=== PATIENT | male | born 2000 | race Hispanic/Latino ===

== ENCOUNTER 2023-03-24 18:47 | Emergency (ER) | payer OTHER ==
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
[2023-03-24 20:38] VITALS: BP 121/68; TEMP 98.4; O2SAT 100
[2023-03-24] MEDS ORDERED: IBUPROFEN 200 MG TAB PO ONE (20:40)
== END 2023-03-24 20:30 | disposition home or self-care (01) ==
LOC: ER 18:47
DX: S29.9XXA Unspecified injury of thorax, initial encounter (principal); S50.01XA Contusion of right elbow, initial encounter
CPT/HCPCS: 71045; 99283

== ENCOUNTER 2023-09-22 20:34 | Emergency (ER) | payer OTHER, SELFPAY ==
[2023-09-22] MEDS ORDERED: METOCLOPRAMIDE 10 MG/2mL INJ ONE (21:12)
[2023-09-22] MEDS ORDERED: NA CHLORIDE 0.9% 50 ML ONE (21:12)
[2023-09-22] MEDS ORDERED: KETOROLAC 30 MG/ML INJ ONE (21:12)
[2023-09-22] MEDS ORDERED: DIPHENHYDRAMINE 50 MG/ML VIAL ONE (21:12)
[2023-09-22] MEDS ORDERED: NA CHLORIDE 0.9% 1,000 ML ONE (21:13)
--- NOTE | 2023-09-22 22:16 | RAD REPORT ---
EXAM DESCRIPTION: CT - Head Brain Wo Cont - 09/22/2023 9:16 pm CLINICAL HISTORY: HEADACHE COMPARISON: No comparisons TECHNIQUE: Noncontrast head CT images ad were obtained without IV contrast. Multiplanar reformats we re generated and reviewed. All CT scans are performed using dose optimization technique as appropriate and may include automated exposure control or mA/KV adjustment according to patient size. FINDINGS: No intracranial hemorrhage, mass, or edema. Midline structures are unremarkable. Normal ventricular caliber for age. Nolan-white matter differentiation is preserved, without evidence of acute infarct. No abnormal extra- axial fluid collections. Mastoid air cells and visualized portions of the paranasal sinuses are clear. No acute bony findings. IMPRESSION: No evidence of an acute intracranial process.
--- NOTE | 2023-09-22 22:40 | EDPHYS ---
Physician Documentation [facility] Name: Gabe Rivera Jr Age: 22 yrs Sex: Male : 2000 Arrival Date: 09/22/2023 Time: 20:34 Bed 3 Private MD: ED Physician Vincent Lanza HPI: 09/22 00:30 This 22 yrs old Male presents to ER via EMS with complaints of headache. rt 00:30 Patient presents to the ED with chronic headaches. Patient has had a headache for a rt while. 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 The grandmother states that the patient was taken off of his Trileptal, other psychiatric medications recently. He has had worsening outbursts since then. Denies any HI, SI at this time. Denies other acute complaints, symptoms are moderate in severity, no other aggravating or alleviating factors.. Historical: - Allergies: 09/21 21:08 No Known Allergies; vc1 - PMHx: 21:08 Anxiety; SHAKEN BABY SYNDROME; TBI; Depressive disorder; vc1 - PSHx: 21:08 None; vc1 - Immunization history:: Adult Immunizations up to date, Client reports having NOT received the Covid vaccine. Flu vaccine is not up to date. - Infectious Disease History:: Denies. - Social history:: Smoking status: Patient denies any tobacco usage or history of. Patient/guardian denies using alcohol, street drugs. ROS: 09/22 00:30 Constitutional: Negative for fever, chills, and weight loss, Cardiovascular: Negative rt for chest pain, palpitations, and edema, Respiratory: Negative for shortness of breath, cough, wheezing, and pleuritic chest pain, Abdomen/GI: Negative for abdominal pain, nausea, vomiting, diarrhea, and constipation, MS/Extremity: Negative for injury and deformity, Skin: Negative for injury, rash, and discoloration, Neuro: Positive for headache, Negative for loss of consciousness, Exam: 00:30 Constitutional: This is a well developed, well nourished patient who is awake, alert, rt and in no acute distress. Head/Face: Normocephalic, atraumatic. Neck: Trachea midline, no thyromegaly or masses palpated, and no cervical lymphadenopathy. Supple, full range of motion without nuchal rigidity, or vertebral point tenderness. No Meningismus. Chest/axilla: Normal chest wall appearance and motion. Nontender with no deformity. No lesions are appreciated. Cardiovascular: Regular rate and rhythm with a normal S1 and S2. No gallops, murmurs, or rubs. Normal PMI, no JVD. No pulse deficits. Respiratory: Lungs have equal breath sounds bilaterally, clear to auscultation and percussion. No rales, rhonchi or wheezes noted. No increased work of breathing, no retractions or nasal flaring. Abdomen/GI: Soft, non-tender, with normal bowel sounds. No distension or tympany. No guarding or rebound. No evidence of tenderness throughout. Skin: Warm, dry with normal turgor. Normal color with no rashes, no lesions, and no evidence of cellulitis. MS/ Extremity: Pulses equal, no cyanosis. Neurovascular intact. Full, normal range of motion. Neuro: Awake and alert, GCS 15, oriented to person, place, time, and situation. Cranial nerves II-XII grossly intact. Motor strength 5/5 in all extremities. Sensory grossly intact. Cerebellar exam normal. Normal gait. Vital Signs: 09/21 21:05 BP 100 / 64; Pulse 63; Resp 15; Temp 97.9; Pulse Ox 99% ; Weight 83.01 kg; Height 8 ft. vc1 3 in. ; 22:44 BP 109 / 75; Pulse 65; Resp 15; Pulse Ox 100% ; vc1 21:05 Body Mass Index 13.13 (83.01 kg, 251.46 cm) vc1 MDM: 20:47 Patient medically screened. rt 09/22 00:30 Differential Diagnosis Chronic headaches, intracranial hemorrhage, tumor. Data rt reviewed: vital signs, nurses notes, radiologic studies. I considered the following discharge prescriptions or medication management in the emergency department Medications were administered in the Emergency Department. See MAR. Independent interpretation of the following test(s) in the Emergency Department CT Scan: My interpretation is No intracranial hemorrhage seen on interpretation of CT scan images. Care significantly affected by the following chronic conditions: Chronic headaches. Counseling: I had a detailed discussion with the patient and/or guardian regarding the historical points, exam findings, and any diagnostic results supporting the discharge/admit diagnosis, radiology results, the need for outpatient follow up, to return to the emergency department if symptoms worsen or persist or if there are any questions or concerns that arise at home. Response to treatment: the patient's symptoms have markedly improved after treatment. ED course: Headache improving with headache cocktail. Patient is having occasional outbursts, was recently taken off of mood stabilizers. Will prescribe short course of Seroquel until the patient is able to get in with his primary care for further management.. 09/21 21:01 Order name: CT Head Brain wo Cont; Complete Time: 22:19 rt Administered Medications: 09/21 21:35 Drug: metoCLOPramide IVP 10 mg IVP once; over 1 to 2 minutes Route: IVP; Site: left vc1 antecubital; 22:45 Follow up: Response: No adverse reaction; Marked relief of symptoms vc1 21:35 Drug: diphenhydrAMINE IVP 25 mg IVP once Route: IVP; Site: left antecubital; vc1 22:45 Follow up: Response: No adverse reaction; Marked relief of symptoms vc1 21:35 Drug: NS 0.9% IV 1000 ml IV at 1 bolus Per protocol; 1000 mL bolus Route: IV; Rate: 1 vc1 bolus; Site: left antecubital; 22:45 Follow up: IV Status: Completed infusion vc1 22:45 Follow up: IV Status: Completed infusion; IV Intake: 1000ml vc1 21:35 Drug: Ketorolac IVP 15 mg IVP once Route: IVP; Site: left antecubital; vc1 22:45 Follow up: Response: No adverse reaction; Marked relief of symptoms vc1 Disposition Summary: 09/22/23 22:40 Discharge Ordered Notes: Location: Home rt Problem: an ongoing problem rt Symptoms: have improved rt Condition: Stable rt Diagnosis - Headache rt Followup: rt - With: Rafael Peña MD - When: 2 - 3 days - Reason: Discharge Instructions: - Discharge Summary Sheet rt - General Headache Without Cause rt Forms: - Medication Reconciliation Form rt - Antibiotic Education rt - Prescription Opioid Use rt - Patient Portal Instructions rt - Leadership Thank You Letter rt Prescriptions: - Seroquel 200 mg Oral tablet - take 1 tablet ORAL route every day at bedtime; 7 tablet; Refills: 0, Product rt Selection Permitted Signatures: Dispatcher [employer] EDMS Catalina Viera RN RN vc1 Vincent Lanza, MD rt
--- NOTE | 2023-09-22 22:40 | ER ---
Nurse's Notes [facility] Name: Gabe Rivera Jr Age: 22 yrs Sex: Male : 2000 Arrival Date: 09/22/2023 Time: 20:34 Bed 3 Private MD: Diagnosis: Headache Presentation: 09/21 21:05 Chief complaint: EMS states: has a history of TBI and has a severe headache, he usually vc1 has migraines every day but today its so bad he couldn't take it anymore. Coronavirus screen: Client denies travel out of the [place] in the last 14 days. At this time, the client does not indicate any symptoms associated with coronavirus-19. Ebola Screen: Patient negative for fever greater than or equal to 101.5 degrees Fahrenheit, and additional compatible Ebola Virus Disease symptoms Patient denies exposure to infectious person. Patient denies travel to an Ebola-affected area in the 21 days before illness onset. No symptoms or risks identified at this time. Initial Sepsis Screen: Does the patient meet any 2 criteria? No. Patient's initial sepsis screen is negative. Does the patient have a suspected source of infection? No. Patient's initial sepsis screen is negative. Risk Assessment: Do you want to hurt yourself or someone else? Patient reports no desire to harm self or others. Onset of symptoms is unknown. 21:05 Method Of Arrival: EMS: [facility] vc1 21:05 Acuity: FABIANO 4 vc1 Triage Assessment: 21:00 General: Appears in no apparent distress. uncomfortable, slender, well groomed, vc1 Behavior is cooperative. Pain: Complains of pain in entire head Pain currently is 10 out of 10 on a pain scale. Quality of pain is described as pressure, sharp, Pain began every day, today is worse. EENT: No deficits noted. No signs and/or symptoms were reported regarding the EENT system. Neuro: Level of Consciousness is awake, alert, obeys commands, Oriented to person, place, situation. Neuro: Reports headache in entire that is the "worst ever". Cardiovascular: Heart tones S1 S2 Capillary refill < 3 seconds Patient's skin is warm and dry. Respiratory: Airway is patent Respiratory effort is even, unlabored, Respiratory pattern is regular, symmetrical, Breath sounds are clear bilaterally. GI: Abdomen is flat, non-distended, Bowel sounds present X 4 quads. Abd is soft and non tender X 4 quads. : No deficits noted. No signs and/or symptoms were reported regarding the genitourinary system. Derm: Skin is intact, is healthy with good turgor, Skin is dry, Skin is normal, Skin temperature is warm. Musculoskeletal: No deficits noted. No signs and/or symptoms reported regarding the musculoskeletal system. Historical: - Allergies: 21:08 No Known Allergies; vc1 - PMHx: 21:08 Anxiety; SHAKEN BABY SYNDROME; TBI; Depressive disorder; vc1 - PSHx: 21:08 None; vc1 - Immunization history:: Adult Immunizations up to date, Client reports having NOT received the Covid vaccine. Flu vaccine is not up to date. - Infectious Disease History:: Denies. - Social history:: Smoking status: Patient denies any tobacco usage or history of. Patient/guardian denies using alcohol, street drugs. Screenin:40 [facility] ED Fall Risk Assessment (Adult) History of falling in the last 3 months, vc1 including since admission No falls in past 3 months (0 pts) Confusion or Disorientation No (0 pts) Intoxicated or Sedated No (0 pts) Impaired Gait No (0 pts) Mobility Assist Device Used No (0 pt) Altered Elimination No (0 pt) Score/Fall Risk Level 0 - 2 = Low Risk Oriented to surroundings, Maintained a safe environment, Educated pt \\T\\ family on fall prevention, incl call for assistance when getting out of bed. Abuse screen: Denies threats or abuse. Nutritional screening: No deficits noted. Tuberculosis screening: No symptoms or risk factors identified. Assessment: 21:00 Reassessment: See triage assessment. vc1 22:48 Reassessment: Patient appears in no apparent distress at this time. Patient and/or vc1 family updated on plan of care and expected duration. Pain level reassessed. Patient is alert, oriented x 3, equal unlabored respirations, skin warm/dry/pink. Patient states symptoms have improved. Vital Signs: 21:05 BP 100 / 64; Pulse 63; Resp 15; Temp 97.9; Pulse Ox 99% ; Weight 83.01 kg; Height 8 ft. vc1 3 in. ; 22:44 BP 109 / 75; Pulse 65; Resp 15; Pulse Ox 100% ; vc1 21:05 Body Mass Index 13.13 (83.01 kg, 251.46 cm) vc1 ED Course: 20:38 Patient arrived in ED. vc1 20:39 Vincent Lanza MD is Attending Physician. rt 20:40 Patient has correct armband on for positive identification. Bed in low position. Call vc1 light in reach. Side rails up X2. Adult w/ patient. Pulse ox on. NIBP on. 21:08 Triage completed. vc1 21:09 Arm band placed on right wrist. vc1 21:18 CT Head Brain wo Cont In Process Unspecified. EDMS 21:30 Inserted saline lock: 20 gauge in left antecubital area, using aseptic technique. vc1 22:40 Rafael Peña MD is Referral Physician. rt 23:17 Catalina Viera, KATIUSKA is Primary Nurse. vc1 23:17 No provider procedures requiring assistance completed. IV discontinued, intact, vc1 bleeding controlled, No redness/swelling at site. Pressure dressing applied. 23:18 Provided Education on: f/u with neurology. vc1 Administered Medications: 21:35 Drug: metoCLOPramide IVP 10 mg IVP once; over 1 to 2 minutes Route: IVP; Site: left vc1 antecubital; 22:45 Follow up: Response: No adverse reaction; Marked relief of symptoms vc1 21:35 Drug: diphenhydrAMINE IVP 25 mg IVP once Route: IVP; Site: left antecubital; vc1 22:45 Follow up: Response: No adverse reaction; Marked relief of symptoms vc1 21:35 Drug: NS 0.9% IV 1000 ml IV at 1 bolus Per protocol; 1000 mL bolus Route: IV; Rate: 1 vc1 bolus; Site: left antecubital; 22:45 Follow up: IV Status: Completed infusion vc1 22:45 Follow up: IV Status: Completed infusion; IV Intake: 1000ml vc1 21:35 Drug: Ketorolac IVP 15 mg IVP once Route: IVP; Site: left antecubital; vc1 22:45 Follow up: Response: No adverse reaction; Marked relief of symptoms vc1 Medication: 22:44 VIS not applicable for this client. vc1 Intake: 22:45 IV: 1000ml; Total: 1000ml. vc1 Outcome: 22:40 Discharge ordered by . rt 23:18 Discharged to home ambulatory, vc1 23:18 Condition: good 23:18 Discharge instructions given to patient, Instructed on discharge instructions, follow up and referral plans. medication usage, Demonstrated understanding of instructions, follow-up care, medications, Prescriptions given X 1, 23:18 Patient left the ED. vc1 Signatures: Dispatcher [employer] Catalina Espinoza RN RN vc1 Vincent Lanza MD MD rt
[2023-09-23 00:05] VITALS: BP 109/75; TEMP 97.9; O2SAT 100
== END 2023-09-22 23:18 | disposition home or self-care (01) ==
LOC: ER 20:34
DX: R51.9 Headache, unspecified (principal); Z87.820 Personal history of traumatic brain injury
CPT/HCPCS: 96361; 70450; 96375; 96374; 99284; J2765; J1200; J7030

== ENCOUNTER 2024-05-22 17:12 | Emergency (ER) | payer OTHER ==
[2024-05-22] MEDS ORDERED: LORazepam 2 MG/ML VIAL ONE (17:53)
[2024-05-22] MEDS ORDERED: NA CHLORIDE 0.9% 1,000 ML ONE (17:56)
[2024-05-22] MEDS ORDERED: ONDANSETRON 4 MG/2 ML VIAL ONE (17:56)
[2024-05-22 18:04] LABS: Absolute Basophils 0.1 K/uL (0-0.5); Absolute Eosinophils 0.2 K/uL (0-0.5); Absolute Lymphocytes (CBC) 1.5 K/uL (0.7-4.9); Absolute Monocytes 0.9 K/uL (0.1-1.3); Absolute Neutrophil 8.6 K/uL (1.8-8.0); Basophils % 0.5 % (0-1.3); Eosinophils % 1.4 % (0-4.4); Hematocrit 40.1 % (39.6-49.0); Hemoglobin 13.8 g/dL (13.6-17.9); Lymphocytes % 13.3 % (15.3-44.8); MCH 31.3 pg (27.0-35.0); MCHC 34.4 g/dL (32.0-36.0); MCV 91.1 fL (80-100); MPV 7.6 fL (7.6-11.3); Monocytes % 7.9 % (3.3-12.3); Neutrophils % 76.9 % (41.7-73.7); Nucleated Red Blood Cells % 0.1 % (0-0); Platelets 335 thou/uL (152-406); Red Cell Distribution Width 12.5 % (12.1-15.2)
[2024-05-22 18:19] LABS: Albumin 3.4 g/dL (3.4-5.0); Anion Gap 7.6 mEq/L (5.0-15.0); Bilirubin Total 0.3 mg/dL (0.2-1.0); Globulin 3.3 g/dL (2.3-3.5); Magnesium 1.9 mg/dL (1.6-2.4); Potassium 3.6 mEq/L (3.5-5.1); Protein, Total 6.7 g/dL (6.4-8.2)
--- NOTE | 2024-05-22 18:54 | RAD REPORT ---
EXAMINATION: ONE VIEW CHEST XR CLINICAL INDICATION: Male, 23 years old.,PALPITATIONS TECHNIQUE: Frontal chest projection is submitted. Examination is limited by patient positioning and t echnique. COMPARISON: 03/24/2023 FINDINGS: The lungs are well inflated and clear. No pneumothorax or sizable effusion. The heart is normal in s ize. Mediastinal contours are unremarkable. IMPRESSION: No acute intrathoracic abnormalities.
--- NOTE | 2024-05-22 19:48 | EDPHYS ---
Physician Documentation [facility] Name: Gabe Rivera Jr Age: 23 yrs Sex: Male : 2000 Arrival Date: 05/22/2024 Time: 17:12 Bed 20 Private MD: ED Physician Noam Loo HPI: 05/22 18:08 This 23 yrs old Male presents to ER via EMS with complaints of Possible dr5 Overdose, Anxiety. 18:08 Auvelity (45mg/105mg). dr5 22:11 Patient states that he possibly overdosed on his medication. Patient is supposed to dr5 take 1 Auvelity in the morning and 1 in the evening. Patient states that he took 2 this evening and started feeling anxious about. Patient denies chest pain, shortness of breath, nausea, vomiting, diarrhea. Patient does have a history of TBI. Mother at bedside with patient.. Historical: - Allergies: 17:39 Milk/dairy products; kj2 - Immunization history:: Adult Immunizations unknown. - Infectious Disease History:: Denies. - Social history:: Smoking status: unknown. ROS: 22:11 Constitutional: as per hpi dr5 Exam: 22:11 Constitutional: This is a well developed, well nourished patient who is awake, alert, dr5 and in no acute distress. Head/Face: Normocephalic, atraumatic. Eyes: Pupils equal round and reactive to light, extra-ocular motions intact. Lids and lashes normal. Conjunctiva and sclera are non-icteric and not injected. Cornea within normal limits. Periorbital areas with no swelling, redness, or edema. Neck: Trachea midline, no thyromegaly or masses palpated, and no cervical lymphadenopathy. Supple, full range of motion without nuchal rigidity, or vertebral point tenderness. No Meningismus. Chest/axilla: Normal chest wall appearance and motion. Nontender with no deformity. No lesions are appreciated. Cardiovascular: Regular rate and rhythm with a normal S1 and S2. Normal PMI, no JVD. No pulse deficits. Respiratory: Lungs have equal breath sounds bilaterally, clear to auscultation. No rales, rhonchi or wheezes noted. No increased work of breathing, no retractions or nasal flaring. Back: No spinal tenderness. No costovertebral tenderness. Full range of motion. Skin: Warm, dry with normal turgor. Normal color with no rashes, no lesions, and no evidence of cellulitis. MS/ Extremity: Pulses equal, no cyanosis. Neurovascular intact. Full, normal range of motion. Neuro: Awake and alert, GCS 15, oriented to person, place, time, and situation. Cranial nerves II-XII grossly intact. Motor strength 5/5 in all extremities. Sensory grossly intact. Cerebellar exam normal. Normal gait. Vital Signs: 17:37 BP 136 / 79; Pulse 127; Resp 20; Temp 98; Pulse Ox 99% on R/A; Weight 95.25 kg; Height kj2 5 ft. 8 in. ; 18:51 BP 136 / 76; Pulse 120; Resp 20; Pulse Ox 100% on R/A; kj2 20:13 BP 127 / 75; Pulse 98; Resp 18 S; Pulse Ox 99% on R/A; ha1 17:37 Body Mass Index 31.93 (95.25 kg, 172.72 cm) kj2 MDM: 17:27 Medical Screening Exam initiated dr5 22:11 Differential diagnosis: polypharmacy, over medication, hypoglycemia. Data reviewed: dr5 vital signs, nurses notes. I considered the following discharge prescriptions or medication management in the emergency department Medications were administered in the Emergency Department. See MAR. Care significantly affected by the following chronic conditions: Traumatic Brain Injury. Care significantly affected by the following Social Determinants of Health: Poor access to healthcare and/or lack of insurance, Poor access to transportation, Problems related to employment. Counseling: I had a detailed discussion with the patient and/or guardian regarding the historical points, exam findings, and any diagnostic results supporting the discharge/admit diagnosis, the presence of at least one elevated blood pressure reading (>120/80) during this emergency department visit, lab results, the need for outpatient follow up, for definitive care, a family practitioner, to return to the emergency department if symptoms worsen or persist or if there are any questions or concerns that arise at home. ED course: Patient reports he is fully much better after Ativan and follow-up fluids. Recommended patient resume taking medication as prescribed tomorrow morning. All blood work was unremarkable and safe to discharge home. Strict ER precautions given. Recommend patient follow-up with primary care doctor and/or psychiatrist as needed. All questions answered.. 05/22 17:40 Order name: CBC with Diff; Complete Time: 18:08 dr5 05/22 17:40 Order name: Magnesium; Complete Time: 18:30 dr5 05/22 17:40 Order name: Troponin HS; Complete Time: 18:30 dr5 05/22 17:40 Order name: CMP; Complete Time: 18:30 dr5 05/22 17:40 Order name: XRAY Chest (1 view); Complete Time: 18:59 dr5 05/22 17:40 Order name: Cardiac monitoring; Complete Time: 17:40 dr5 05/22 17:40 Order name: EKG - Nurse/Tech; Complete Time: 17:40 dr5 05/22 17:40 Order name: IV Saline Lock; Complete Time: 18:03 dr5 05/22 17:40 Order name: Labs collected and sent; Complete Time: 18:03 dr5 05/22 17:40 Order name: O2 Per Protocol; Complete Time: 17:40 dr5 05/22 17:40 Order name: O2 Sat Monitoring; Complete Time: 17:40 dr5 EC:33 Rate is 124 beats/min. Rhythm is regular. QRS [place] is Normal. CT interval is normal at dr5 154 msec. QRS interval is normal at 86 msec. QT interval is normal at 328 msec. Administered Medications: 18:02 Drug: Ativan IVP 0.5 mg IVP once Route: IVP; Site: right antecubital; kj2 18:53 Follow up: Response: No adverse reaction kj2 18:02 Drug: NS 0.9% IV 1000 ml IV at 1000 ml once; to be given as a bolus over 60 minutes kj2 Route: IV; Rate: 1000 ml; Site: right antecubital; 18:53 Follow up: IV Status: Completed infusion; IV Intake: 1000ml kj2 18:02 Drug: Ondansetron IVP 4 mg IVP once; over 2 minutes Route: IVP; Site: right antecubital;kj2 18:53 Follow up: Response: No adverse reaction kj2 Disposition: 05/23 10:07 Co-signature as Attending Physician, Noam Loo MD I reviewed the patient's care rn provided by the Advanced Practice Provider and agree with the diagnosis and treatment plan. Disposition Summary: 05/22/24 19:47 Discharge Ordered Notes: Location: Home dr5 Condition: Stable dr5 Diagnosis - Anxiety disorder, unspecified dr5 - Other psychoactive substance use, unspecified dr5 Followup: dr5 - With: Emergency Department - When: As needed - Reason: Worsening of condition Followup: dr5 - With: Private Physician - When: 1 - 2 days - Reason: Recheck today's complaints, Continuance of care, Re-evaluation by your physician Discharge Instructions: - Discharge Summary Sheet dr5 - Supporting Someone With Substance Use Disorder dr5 - Managing Anxiety, Adult dr5 Forms: - Medication Reconciliation Form dr5 - Patient Portal Instructions dr5 - Leadership Thank You Letter dr5 Signatures: Dispatcher [employer] EDMS Noam Loo MD MD rn Jordan, Krystal, RN RN kj2 Robin Ramirez, AIRPLANE CABIN ATTENDANT-C AIRPLANE CABIN ATTENDANT-Cdr5 Corrections: (The following items were deleted from the chart) 05/22 17:40 17:40 Chest Single View+RAD.RAD.BRZ ordered. [facility]
--- NOTE | 2024-05-22 19:48 | ER ---
Nurse's Notes [facility] Name: Gabe Rivera Jr Age: 23 yrs Sex: Male : 2000 Arrival Date: 05/22/2024 Time: 17:12 Bed 20 Private MD: Diagnosis: Anxiety disorder, unspecified;Other psychoactive substance use, unspecified Presentation: 05/22 17:37 Chief complaint: EMS states: overdose on his SSRI medicine, name of med unknown. kj2 Coronavirus screen: Client denies travel out of the [place] in the last 14 days. Ebola Screen: No symptoms or risks identified at this time. Initial Sepsis Screen: Does the patient meet any 2 criteria? No. Patient's initial sepsis screen is negative. Does the patient have a suspected source of infection? No. Patient's initial sepsis screen is negative. Risk Assessment: Do you want to hurt yourself or someone else? Patient reports no desire to harm self or others. Onset of symptoms. 17:37 Method Of Arrival: EMS: [facility] kj2 17:37 Acuity: FABIANO 3 kj2 Triage Assessment: 17:40 General: Appears in no apparent distress. Behavior is calm, cooperative. Pain: Denies kj2 pain. Neuro: Level of Consciousness is awake, alert, obeys commands, Oriented to person, place, time, situation. Cardiovascular: Patient's skin is warm and dry. Respiratory: Airway is patent Respiratory effort is even, unlabored. GI: No signs and/or symptoms were reported involving the gastrointestinal system. : No signs and/or symptoms were reported regarding the genitourinary system. Historical: - Allergies: 17:39 Milk/dairy products; kj2 - Immunization history:: Adult Immunizations unknown. - Infectious Disease History:: Denies. - Social history:: Smoking status: unknown. Screenin:44 [facility] ED Fall Risk Assessment (Adult) History of falling in the last 3 months, kj2 including since admission No falls in past 3 months (0 pts) Confusion or Disorientation No (0 pts) Intoxicated or Sedated No (0 pts) Impaired Gait No (0 pts) Mobility Assist Device Used No (0 pt) Altered Elimination No (0 pt) Score/Fall Risk Level 0 - 2 = Low Risk Maintained a safe environment, Hourly rounding (assess needs \\T\\ fall precautionary measures) done. Abuse screen: Denies threats or abuse. Denies injuries from another. Nutritional screening: No deficits noted. Tuberculosis screening: No symptoms or risk factors identified. Assessment: 17:43 General: call light. kj2 18:51 Reassessment: Patient appears in no apparent distress at this time. Patient and/or kj2 family updated on plan of care and expected duration. Pain level reassessed. Patient is alert, oriented x 3, equal unlabored respirations, skin warm/dry/pink. 20:13 Reassessment: Patient and/or family updated on plan of care and expected duration. Pain ha1 level reassessed. Patient is alert, oriented x 3, equal unlabored respirations, skin warm/dry/pink. Patient states feeling better. Patient states symptoms have improved. Overdose: 17:44 Spray Suicide Severity Screening: "In the past month, have you wished you were kj2 or wished you could go to sleep and not wake up?" Patient responds "no." "In the past month, have you actually had any thoughts of killing yourself?" Patient responds "no." "In your lifetime, have you ever done anything, started to do anything, or prepared to do anything to end your life?" Patient responds "no.". 20:15 Spray Suicide Severity Screening: "In the past month, have you actually had any ha1 thoughts of killing yourself?" Patient responds "no.". Vital Signs: 17:37 BP 136 / 79; Pulse 127; Resp 20; Temp 98; Pulse Ox 99% on R/A; Weight 95.25 kg; Height kj2 5 ft. 8 in. ; 18:51 BP 136 / 76; Pulse 120; Resp 20; Pulse Ox 100% on R/A; kj2 20:13 BP 127 / 75; Pulse 98; Resp 18 S; Pulse Ox 99% on R/A; ha1 17:37 Body Mass Index 31.93 (95.25 kg, 172.72 cm) kj2 ED Course: 17:25 Patient arrived in ED. kj2 17:27 [facility]C [facility]. dr[facility] 17:27 Noam Loo MD is Attending Physician. dr5 17:36 Heather Aden RN is Primary Nurse. kj2 17:39 Triage completed. kj2 17:45 Patient has correct armband on for positive identification. Bed in low position. Call kj2 light in reach. Adult w/ patient. Provided Education on: call light. 18:00 XRAY Chest (1 view) In Process Unspecified. EDMS 18:52 Assisted to bathroom. kj2 19:28 Report given to KATIUSKA Murillo. kj2 20:14 IV discontinued, intact, bleeding controlled, No redness/swelling at site. Pressure ay dressing applied. 20:15 IV discontinued, intact, bleeding controlled, No redness/swelling at site. Pressure ha1 dressing applied. Administered Medications: 18:02 Drug: Ativan IVP 0.5 mg IVP once Route: IVP; Site: right antecubital; kj2 18:53 Follow up: Response: No adverse reaction kj2 18:02 Drug: NS 0.9% IV 1000 ml IV at 1000 ml once; to be given as a bolus over 60 minutes kj2 Route: IV; Rate: 1000 ml; Site: right antecubital; 18:53 Follow up: IV Status: Completed infusion; IV Intake: 1000ml kj2 18:02 Drug: Ondansetron IVP 4 mg IVP once; over 2 minutes Route: IVP; Site: right antecubital;kj2 18:53 Follow up: Response: No adverse reaction kj2 Medication: 17:44 VIS not applicable for this client. kj2 Intake: 18:53 IV: 1000ml; Total: 1000ml. kj2 Outcome: 19:47 Discharge ordered by . aminata 20:14 Discharged to home ambulatory, ay 20:14 Condition: stable 20:14 Discharge instructions given to patient, Instructed on discharge instructions, follow up and referral plans. Demonstrated understanding of instructions, follow-up care, medications, 20:16 Patient left the ED. ay Signatures: Dispatcher [employer] EDMS Smiley Pickett, RN RN ha1 Heather Aden RN RN kj2 Robin Ramirez, ACQUISITION EDITOR-C ACQUISITION EDITOR-Cdr5 Carlos Pritchett RN KATIUSKA ay
[2024-05-22 20:22] VITALS: TEMP 98
[2024-05-22 20:24] VITALS: BP 127/75; O2SAT 99
--- NOTE | 2024-05-25 12:21 | EKG ---
Test Date: 2024-05-22 Test Time: 17:33:26 Application Development Director: ELIZABETH MEASUREMENT RESULTS: Intervals: Rate: 124 IA: 154 QRSD: 86 QT: 328 QTc: 471 [place]: P: 58 IA: 154 QRS: 61 T: 49 INTERPRETIVE STATEMENTS: Sinus tachycardia Otherwise normal ECG Compared to ECG 12/22/2007 21:43:35 Sinus rhythm no longer present Electronically Signed On 05-25-24 12:17:22 AWNING FRAME MAKER by Eldon Coyne
== END 2024-05-22 20:16 | disposition home or self-care (01) ==
LOC: ER 17:12
DX: F41.9 Anxiety disorder, unspecified (principal); F19.90 Other psychoactive substance use, unspecified, uncomplicated
CPT/HCPCS: 96361; 93005; 85025; 36415; 83735; 84484; 80053; 71045; 96375; 96374; 99284; J2405; J7030

== ENCOUNTER 2024-07-20 17:14 | Emergency (ER) | payer OTHER ==
[2024-07-20] MEDS ORDERED: KETOROLAC 30 MG/ML INJ ONE (18:43)
[2024-07-20 18:49] LABS: Absolute Eosinophils 0.1 K/uL (0-0.5); Absolute Lymphocytes (CBC) 0.4 K/uL (0.7-4.9); Absolute Monocytes 0.7 K/uL (0.1-1.3); Absolute Neutrophil 10.8 K/uL (1.8-8.0); Basophils % 0.2 % (0-1.3); Eosinophils % 0.5 % (0-4.4); Hematocrit 46.4 % (39.6-49.0); Hemoglobin 16.4 g/dL (13.6-17.9); Lymphocytes % 3.5 % (15.3-44.8); MCH 32.6 pg (27.0-35.0); MCHC 35.3 g/dL (32.0-36.0); MCV 92.3 fL (80-100); MPV 7.7 fL (7.6-11.3); Monocytes % 5.6 % (3.3-12.3); Neutrophils % 90.2 % (41.7-73.7); Platelets 358 thou/uL (152-406); RBC Red Blood Cell Count 5.03 M/uL (4.33-5.43); Red Cell Distribution Width 12.8 % (12.1-15.2)
--- NOTE | 2024-07-20 19:00 | RAD REPORT ---
EXAMINATION: Abdomen Pelvis W Contrast CLINICAL INDICATION: Male, 23 years old.ABD PAIN TECHNIQUE: CT abdomen and pelvis was performed, after the administration of IV contrast, [facility]. Axial, sagittal and coronal reconstructions were obtained. One or more of the following dose reduction techniques were used: Automated exposure control, adjustment of the mA and/o r kV according to patient size, and/or iterative reconstruction. Unless otherwise specified, incidental findings do not require dedicated imaging follow-up. [id number]. COMPARISON: 12/15/2014 FINDINGS: LOWER CHEST: No acute process identified.No significant pericardial effusion. UPPER GI: No significant abnormality. LIVER: No significant focal abnormality. GALLBLADDER/BILE DUCTS: No biliary ductal dilatation.? PANCREAS: No mass, ductal dilation, or erik-pancreatic fluid. SPLEEN: Unremarkable. ADRENALS: No adrenal masses. KIDNEYS AND URETERS: No hydronephrosis.No suspicious renal mass.No renal calculi. ABDOMINAL AORTA AND OTHER VESSELS: Normal caliber aorta and IVC. PERITONEUM: No abnormal free fluid. No free air. LYMPH NODES: No pathologic lymphadenopathy. ABDOMINAL WALL: Unremarkable SMALL BOWEL/COLON: Mild rectal wall thickening. Nonspecific fluid present within the small bowel.Norm al appendix URINARY BLADDER: Underdistended but grossly unremarkable. REPRODUCTIVE ORGANS: No pathologic process. MUSCULOSKELETAL: No acute or suspicious osseous abnormality. ADDITIONAL FINDINGS: None. IMPRESSION: No acute findings within the abdomen or pelvis. Question mild rectal wall thickening which could benita mildred a mild proctitis. There is also some nonspecific fluid within the small bowel which can be seen secondary to a gastroenteritis. No bowel obstruction. Normal appendix.
[2024-07-20 19:03] LABS: Alkaline Phosphatase 94 U/L (45-117); BUN Blood Urea Nitrogen 15 mg/dL (7-18); Bicarbonate 30 mEq/L (21-32); Bilirubin Total 0.7 mg/dL (0.2-1.0); Glomerular Filtration Rate 97 ml/min (=/>90); Glucose Level 118 mg/dL (74-106); Lipase 25 U/L (13-75); Sodium Level 139 mEq/L (136-145)
[2024-07-20 19:08] LABS: ALT/SGPT < 14 U/L (16-61); AST/SGOT < 10 U/L (15-37)
--- NOTE | 2024-07-20 20:14 | ER ---
Nurse's Notes [facility] Name: Gabe Rivera Jr Age: 23 yrs Sex: Male : 2000 Arrival Date: 07/20/2024 Time: 17:14 Bed DX1 Private MD: Diagnosis: Proctitis Presentation: 07/20 18:51 Chief complaint: Patient states: right sided abdominal pain onset this morning. pt also cm10 reports nausea and vomiting. Coronavirus screen: Client denies travel out of the [place] in the last 14 days. Ebola Screen: Patient denies travel to an Ebola-affected area in the 21 days before illness onset. Initial Sepsis Screen: Does the patient meet any 2 criteria? No. Patient's initial sepsis screen is negative. Does the patient have a suspected source of infection? No. Patient's initial sepsis screen is negative. Risk Assessment: Do you want to hurt yourself or someone else? Patient reports no desire to harm self or others. Onset of symptoms was July 20, 2024. 18:51 Method Of Arrival: Wheelchair cm10 18:51 Acuity: FABIANO 3 cm10 Triage Assessment: 18:52 General: Appears uncomfortable, Behavior is calm, cooperative. Pain: Complains of pain cm10 in right lower quadrant and left lower quadrant and left upper quadrant Pain currently is 8 out of 10 on a pain scale. Neuro: No deficits noted. Level of Consciousness is awake, alert, obeys commands, Oriented to person, place, time, situation, Appropriate for age. Respiratory: No deficits noted. Airway is patent Respiratory effort is even, unlabored, Respiratory pattern is regular, symmetrical. Historical: - Allergies: 18:52 Milk/dairy products; cm10 - PMHx: 18:52 Anxiety; depressive disorder; SHAKEN BABY SYNDROME; TBI; cm10 - Immunization history:: Adult Immunizations up to date. - Infectious Disease History:: Denies. - Social history:: Smoking status: Patient denies any tobacco usage or history of. Screenin:00 [facility] ED Fall Risk Assessment (Adult) History of falling in the last 3 months, vc1 including since admission No falls in past 3 months (0 pts) Confusion or Disorientation No (0 pts) Intoxicated or Sedated No (0 pts) Impaired Gait No (0 pts) Mobility Assist Device Used No (0 pt) Altered Elimination No (0 pt) Score/Fall Risk Level 0 - 2 = Low Risk Oriented to surroundings, Maintained a safe environment, Educated pt \T\ family on fall prevention, incl call for assistance when getting out of bed. Abuse screen: Denies threats or abuse. Nutritional screening: No deficits noted. Tuberculosis screening: No symptoms or risk factors identified. Assessment: 21:08 General: Appears in no apparent distress. comfortable, Behavior is calm, cooperative, vc1 appropriate for age. Pain: Complains of pain in right lower quadrant and left lower quadrant and left upper quadrant. Neuro: Level of Consciousness is awake, alert, obeys commands, Oriented to person, place, time, situation, Appropriate for age. Cardiovascular: Capillary refill < 3 seconds Patient's skin is warm and dry. Respiratory: Airway is patent Respiratory effort is even, unlabored, Respiratory pattern is regular, symmetrical, Breath sounds are clear bilaterally. GI: Bowel sounds present X 4 quads. Abd is soft Abdomen is tender to palpation X 4 quads. : No deficits noted. No signs and/or symptoms were reported regarding the genitourinary system. EENT: No deficits noted. No signs and/or symptoms were reported regarding the EENT system. Derm: Skin is intact, is healthy with good turgor, Skin is dry, Skin is normal, Skin temperature is warm. Musculoskeletal: No deficits noted. No signs and/or symptoms reported regarding the musculoskeletal system. Vital Signs: 18:51 BP 108 / 61; Pulse 84; Resp 15; Temp 98.3; Pulse Ox 95% on R/A; Weight 96.16 kg; Height cm10 5 ft. 8 in. ; Pain 8/10; 18:51 Body Mass Index 32.23 (96.16 kg, 172.72 cm) cm10 18:51 Pain Scale: Adult cm10 ED Course: 17:15 Patient arrived in ED. im 17:16 Teresa Navas FNP-C [facility]. kb 17:16 Mynor Mcclain MD is Attending Physician. kb 18:28 CT Abd/Pelvis - IV Contrast Only In Process Unspecified. EDMS 18:52 Triage completed. cm10 18:52 Arm band placed on right wrist. Patient placed in waiting room. cm10 21:07 No provider procedures requiring assistance completed. IV discontinued, intact, vc1 bleeding controlled, No redness/swelling at site. Pressure dressing applied. 21:08 Seen in diagnostic chair. Provided Education on: antibiotics. vc1 Administered Medications: 18:51 Drug: TORadol - Ketorolac IVP 15 mg IVP once Route: IVP; Site: left antecubital; cm10 20:41 Not Given (Other Intervention Used): ondansetron 4 mg IVP once; over 2 minutes vc1 20:41 CANCELLED (Physician Discretion): ns 0.9% 1000 ml IV at 1 bolus Per protocol; to be vc1 given as a bolus over 60 minutes 20:46 Drug: Ciprofloxacin PO 500 mg PO once Route: PO; vc1 20:46 Drug: metroNIDAZOLE PO 500 mg PO once Route: PO; vc1 20:46 Drug: Ondansetron PO 4 mg PO once Route: PO; vc1 Medication: 21:07 VIS not applicable for this client. vc1 Outcome: 20:14 Discharge ordered by . barb 21:07 Discharged to home via wheelchair, with family, vc1 21:07 Condition: good 21:07 Discharge instructions given to patient, family, Instructed on discharge instructions, follow up and referral plans. medication usage, Demonstrated understanding of instructions, follow-up care, medications, Prescriptions given X 4, 21:09 Patient left the ED. vc1 Signatures: Dispatcher [employer] Teresa Henderson, ASHLIE RENO-Catalina De Guzman RN RN vc1 Josefina Rivera Clarissa, RN RN cm10
--- NOTE | 2024-07-20 20:14 | EDPHYS ---
Physician Documentation [facility] Name: Gabe Rivera Jr Age: 23 yrs Sex: Male : 2000 Arrival Date: 07/20/2024 Time: 17:14 Bed DX1 Private MD: ED Physician Mynor Mcclain HPI: 07/20 17:45 This 23 yrs old Male presents to ER via Unassigned with complaints of kb Abdominal Pain, Vomiting. 17:45 Patient is a 23-year-old male who presents for abdominal pain that started at 6 this morning with nausea and vomiting. Reports he is felt like he has had a fever. Denies diarrhea.. Historical: - Allergies: 18:52 Milk/dairy products; cm10 - PMHx: 18:52 Anxiety; depressive disorder; SHAKEN BABY SYNDROME; TBI; cm10 - Immunization history:: Adult Immunizations up to date. - Infectious Disease History:: Denies. - Social history:: Smoking status: Patient denies any tobacco usage or history of. ROS: 17:45 Constitutional: As per HPI kb Exam: 17:45 Constitutional: This is a well developed, well nourished patient who is awake, alert, kb and in no acute distress. Head/Face: Normocephalic, atraumatic. ENT: Moist Mucous membranes Cardiovascular: Regular rate Respiratory: Respirations even and unlabored. No increased work of breathing. Talking in full sentences Skin: Warm, dry with normal turgor. Normal color. MS/ Extremity: Pulses equal, no cyanosis. Neurovascular intact. Full, normal range of motion. Neuro: Awake and alert, GCS 15, oriented to person, place, time, and situation. 17:45 Abdomen/GI: Inspection: abdomen appears normal, Bowel sounds: normal, Palpation: soft, in all quadrants, mild abdominal tenderness, in the right lower quadrant, moderate abdominal tenderness, in the left upper quadrant and left lower quadrant, Vital Signs: 18:51 BP 108 / 61; Pulse 84; Resp 15; Temp 98.3; Pulse Ox 95% on R/A; Weight 96.16 kg; Height cm10 5 ft. 8 in. ; Pain 8/10; 18:51 Body Mass Index 32.23 (96.16 kg, 172.72 cm) cm10 18:51 Pain Scale: Adult cm10 MDM: 17:17 Medical Screening Exam initiated kb 17:48 Data reviewed: vital signs, nurses notes. Historians other than the Patient: Parent: barb Mother. 20:12 Differential diagnosis: appendicitis, gastritis, non-specific abd pain, diverticulitis, kb colits. Counseling: I had a detailed discussion with the patient and/or guardian regarding the historical points, exam findings, and any diagnostic results supporting the discharge/admit diagnosis, lab results, radiology results, the need for outpatient follow up, a family practitioner, to return to the emergency department if symptoms worsen or persist or if there are any questions or concerns that arise at home. 07/20 17:42 Order name: CBC with Diff; Complete Time: 20:41 kb 07/20 17:42 Order name: CMP; Complete Time: 19:12 kb 07/20 17:42 Order name: Lipase; Complete Time: 19:12 kb 07/20 20:35 Order name: CBC Smear Scan; Complete Time: 20:41 EDMS 07/20 17:42 Order name: CT Abd/Pelvis - IV Contrast Only; Complete Time: 19:01 kb 07/20 17:42 Order name: IV Saline Lock; Complete Time: 20:47 kb 07/20 17:42 Order name: Labs collected and sent; Complete Time: 20:47 kb Administered Medications: 18:51 Drug: TORadol - Ketorolac IVP 15 mg IVP once Route: IVP; Site: left antecubital; cm10 20:41 Not Given (Other Intervention Used): ondansetron 4 mg IVP once; over 2 minutes vc1 20:41 CANCELLED (Physician Discretion): ns 0.9% 1000 ml IV at 1 bolus Per protocol; to be vc1 given as a bolus over 60 minutes 20:46 Drug: Ciprofloxacin PO 500 mg PO once Route: PO; vc1 20:46 Drug: metroNIDAZOLE PO 500 mg PO once Route: PO; vc1 20:46 Drug: Ondansetron PO 4 mg PO once Route: PO; vc1 Disposition Summary: 07/20/24 20:14 Discharge Ordered Notes: Location: Home Condition: Stable kb Diagnosis - Proctitis kb Followup: kb - With: Emergency Department - When: As needed - Reason: Worsening of condition Followup: kb - With: Private Physician - When: 2 - 3 days - Reason: Recheck today's complaints, Continuance of care, Re-evaluation by your physician Discharge Instructions: - Discharge Summary Sheet kb - Proctitis kb Forms: - Medication Reconciliation Form kb - Antibiotic Education kb - Prescription Opioid Use kb - Patient Portal Instructions kb - Leadership Thank You Letter kb Prescriptions: - Cipro 500 mg Oral Tablet - take 1 tablet ORAL route every 12 hours for 10 days; 20 tablet; Refills: 0, kb Product Selection Permitted - Flagyl 500 mg Oral Tablet - take 1 tablet ORAL route every 8 hours for 10 days; 30 tablet; Refills: 0, kb Product Selection Permitted - Zofran 4 mg Oral tablet - take 1 tablet ORAL route every 6 hours As needed; 12 tablet; Refills: 0, kb Product Selection Permitted - Diclofenac Sodium 75 mg Oral tablet, delayed release (enteric coated) - take 1 tablet ORAL route 2 times per day As needed; 30 tablet; Refills: 0, kb Product Selection Permitted Signatures: Dispatcher [employer] EDMS Teresa Navas, [employer]-Catalina De Guzman RN RN vc1 Ashly Coulter RN RN cm10 Corrections: (The following items were deleted from the chart) 17:42 17:42 Abdomen Pelvis W [id number].RAD.BRZ ordered. EDMA EDMS 20:41 17:42 NS 0.9% IV 1000 ml IV at 1 bolus Per protocol; to be given as a bolus over 60 vc1 minutes ordered. kb
[2024-07-20 20:34] LABS: Blood Morphology Comment NOT SEEN (NOT SEEN); Platelet Estimate ADEQ; White Blood Cell Scan OK (OK)
[2024-07-20] MEDS ORDERED: metroNIDAZOLE 500 MG TABLET ONE (20:43)
[2024-07-20] MEDS ORDERED: CIPROFLOXACIN HCL 500 MG TAB ONE (20:43)
[2024-07-20] MEDS ORDERED: ONDANSETRON 4 MG (ODT) TAB ONE (20:43)
[2024-07-20 21:20] VITALS: BP 108/61; TEMP 98.3; O2SAT 95
== END 2024-07-20 21:09 | disposition home or self-care (01) ==
LOC: ER 17:14
DX: K62.89 Other specified diseases of anus and rectum (principal)
CPT/HCPCS: 85025; 36415; 83690; 80053; 74177; 96374; 99284; Q9967; Q0162

== ENCOUNTER 2025-02-15 19:24 | Emergency (ER) | payer OTHER ==
--- NOTE | 2025-02-15 20:39 | RAD REPORT ---
EXAM: CT brain without contrast HISTORY: acute headache COMPARISON: None TECHNIQUE: Multiple contiguous axial images were obtained and a CT of the brain without contrast. Sag ittal and coronal reformats were performed. One or more of the following dose reduction techniques were used: Automated exposure control, adjust ment of the mA and/or kV according to patient size, and/or iterative reconstruction. FINDINGS: No evidence of hydrocephalus, intracranial hemorrhage, or extra-axial fluid collection. The brain is normal in morphology. No evidence of midline shift or areas of brain edema. The calvarium is intact. The visualized paranasal sinuses and mastoid air cells are essentially clear . EXAM: CT of the cervical spine without contrast HISTORY: Neck pain, injury acute headache TECHNIQUE: Multiple contiguous axial images were obtained in a CT of the cervical spine without contr ast. Sagittal and coronal reformats were performed. FINDINGS: The vertebral bodies demonstrate normal height and alignment. No evidence of acute fracture or subluxation.. No degenerative changes are present. No prevertebral soft tissue swelling is seen. The posterior facets are well aligned. Normal alignment of the skull base with the cervical spine is seen. The lung apices are unremarkable. COMBINED IMPRESSION: No evidence of acute intracranial abnormality. No evidence of acute osseous abnormality of the cervical spine.
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
[2025-02-15] MEDS ORDERED: ACETAMINOPHEN 500 MG TAB ONE (21:40)
[2025-02-15] MEDS ORDERED: IBUPROFEN 400 MG TAB ONE (21:40)
[2025-02-16 05:05] VITALS: TEMP 97.4
[2025-02-16 05:06] VITALS: BP 98/58; O2SAT 100
== END 2025-02-15 22:23 | disposition home or self-care (01) ==
LOC: ER 19:24
DX: S13.4XXA Sprain of ligaments of cervical spine, initial encounter (principal); S09.90XA Unspecified injury of head, initial encounter; R51.9 Headache, unspecified; V49.59XA Passenger injured in collision with other motor vehicles in traffic accident, initial encounter
CPT/HCPCS: 70450; 72125; 99283